=== PATIENT | male | born 1970 | race Caucasian/White ===

== ENCOUNTER 2017-02-22 12:23 | Emergency (ER) | payer OTHER ==
[~2017-02-22] VITALS: Ht 177.8 cm; Wt 81.6 kg
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
[2017-02-22 14:04] VITALS: BP 140/95
== END 2017-02-22 14:06 ==
LOC: ERH 12:23
DX: S02.2XXA Fracture of nasal bones, initial encounter for closed fracture (principal); S09.90XA Unspecified injury of head, initial encounter; Y08.02XA Assault by strike by baseball bat, initial encounter; Y92.9 Unspecified place or not applicable; Y93.9 Activity, unspecified